=== PATIENT | male | born 1945 | race Caucasian/White ===

== ENCOUNTER 2020-06-27 06:27 | Inpatient (IN) | payer MEDICARE ==
[~2020-06-27] VITALS: Ht 152.4 cm; Wt 105.7 kg
[2020-06-27 06:29] VITALS: BP 137/89
[2020-06-27 07:16] LABS: BE(vivo) 0.8 mmol/L (-2 to +3); HCO3 25.1 mmol/L (22.0-26.0); PCO2 39.1 mmHg (35.0-45.0); PO2 78.6 mmHg (80.0-100.0); pH 7.425 (7.360-7.450); sO2 95.9 % (92.0-98.0)
[2020-06-27 07:18] LABS: HEMATOCRIT 40.9 % (42.0-52.0); HEMOGLOBIN 13.3 gm/dL (14.0-18.0); MCHC 32.7 g/dL (28.0-37.0); MCV 88.9 fL (80.0-100.0); PLATELET COUNT 384 thou/uL (150-400); RDW 14.2 % (10.5-14.5); WBC 22.3 thou/uL (4.0-11.0)
[2020-06-27 07:41] LABS: ALBUMIN 2.9 g/dL (3.4-5.0); CALCIUM 8.3 mg/dL (8.5-10.1); CREATININE 1.8 mg/dL (0.7-1.3); TOTAL BILIRUBIN 0.8 mg/dL (0.2-1.0); TOTAL PROTEIN 7.3 g/dL (6.4-8.2)
[2020-06-27 07:53] LABS: ABSOLUTE NEUTROPHILS 20.3 thou/uL (1.4-8.2)
[2020-06-27 07:54] LABS: PLATELET ESTIMATE NORMAL; POTASSIUM 4.1 mmol/L (3.5-5.1)
[2020-06-27 12:54] LABS: URINE BILIRUBIN NEGATIVE (Negative); URINE BLOOD 3+ (Negative); URINE COLOR YELLOW; URINE GLUCOSE-RANDOM* NEGATIVE (Negative); URINE KETONES NEGATIVE (Negative); URINE NITRITE-REFLEX NEGATIVE (Negative); URINE PROTEIN (DIPSTICK) 2+ (Negative); URINE SPECIFIC GRAVITY 1.015 (1.005-1.035)
[2020-06-27 12:55] LABS: URINE CLARITY CLOUDY; URINE LEUKOCYTES-REFLEX 3+ (Negative)
[2020-06-27 12:58] LABS: CRYSTALS None Seen /LPF (None Seen); SQUAMOUS None Seen /LPF (0-3); URINE RBC >20 Many /HPF (0-2); URINE WBC-REFLEX >25 Many /HPF (0-5)
--- NOTE | 2020-06-27 14:19 | EKG ---
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
--- NOTE | 2020-06-27 22:31 | NUR ---
SPOKE WITH ADRIA MCCRAY, REPORTED PT FINDINGS. MAY DC ISOLATION FOR COVID.
[2020-06-27 22:45] VITALS: BP 117/43
[2020-06-27 23:11] VITALS: BP 117/47
[2020-06-28 04:04] VITALS: BP 133/67
[2020-06-28 05:50] LABS: HEMATOCRIT 33.9 % (42.0-52.0); MCH 29.2 pg (26.0-34.0); MCHC 32.8 g/dL (28.0-37.0); MCV 89.1 fL (80.0-100.0); RBC 3.81 mil/uL (4.50-6.00); RDW 14.5 % (10.5-14.5); WBC 25.6 thou/uL (4.0-11.0)
[2020-06-28 05:59] LABS: CALCIUM 8.7 mg/dL (8.5-10.1); CREATININE 1.7 mg/dL (0.7-1.3); POTASSIUM 4.7 mmol/L (3.5-5.1)
[2020-06-28 06:00] LABS: HEMOGLOBIN 11.1 gm/dL (14.0-18.0)
[2020-06-28 07:27] VITALS: BP 126/66
--- NOTE | 2020-06-28 07:53 | NUR ---
admit pt admitted to room 456 via ed with copd exacerbation and chf. pt irritable at times vss, ivf's infusing as ordered pt voiding per urinal lower legs pink pt stated they are always like that since he had cellulitis a few years ago. oriented to room call light and poc.
--- NOTE | 2020-06-28 10:57 | NUR ---
Nutrition: pt admitted with COPD exacerbation, SOB. Consult received. PMH: CVA, COPD. pt reports good appetite on regular diet. BG 151-211, likely elevated with steroid need. Stable weights reported. BMI 33, obesity class 1. Pt voices no needs from RD. Understands how to order meals. Could consider heart healthy, carb controlled diet order. Low risk.
--- NOTE | 2020-06-28 11:59 | NUR ---
PT ADMITTED RELATED TO COPD EXACERBATION, PUI. CM REVIEWED CHART AND SPOKE WITH CARE TEAM. CM CALLED AND SPOKE WITH PT OVER THE PHONE THIS DAY. PT APPEARED TO BE A&O X4. CM ROLE INTRODUCED. PT INDICATED HE HAD BEEN LIVING IN A HOUSE WITH HIS DTR CONNOR PRIOR TO ADMISSION. HE INDICATED THAT THERE IS A STAIR GLIDETO ENTER THE HOUSE AND NO STEPS PT NEEDS TO NAVIGATE INSIDE. PT INDICATED HE HAS AN ELECTRIC WC, NEBULIZER, FWW, GB, AND SHOWER CHAIR FOR HOME USE. 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 PT INIDCATED HIS PCP IS DR. MIKEY BATISTA AT [facility]. HE INDICATED THAT HE HAD HOME HEALTH IN THE LAST YEAR AND DTR INIDCATED THAT HE HAD USED [facility], AND [facility]. SHE INDICATED THEY WOULD PREFER TO NOT USE [facility] AGAIN BUT WOULD BE OK WITH [facility]. CM TO SEND REFERRAL. PT ADN OT SAW PT AND INDICATED HE WOULD LIKELY PROGRESS TO BE ABLE TO RETURN HOME WITH HH SERVICES ONCE MEDICALLY STABLE. CM NOTIFIED DTR AND PT OF THIS. CM TO FOLLOW INDICATED WITH DC PLANNING.
[2020-06-28 14:59] VITALS: BP 126/66
--- NOTE | 2020-06-28 15:02 | NUR ---
[facility] is accepting of home health care at discharge. IF patient should discharge over weekend please call home health at [facility] [phone] FAX [phone] fax orders to above fax.
--- NOTE | 2020-06-28 15:39 | NUR ---
PATIENT A&OX4, VSS, DENIES PAIN. PATIENT SINUS RHYTHM TELE MONITOR. PATIENT HAS REDNESS ON BILAT LE FROM HX CELLULITIS. PATIENT EATING 100 PERCENT OF MEALS. PATIENT USES THE URINAL. LUNGS SOUND CLEAR BREATHING EVEN AND NON LABORED. PATIENT IS ON ROOM AIR, SATURATION AT 95 PERCENT AVERAGE. NO SIGNS OF DISTRESS. NO COUGH NOTED, AFEBRILE. WILL CONTINUE TO MONITOR.
--- NOTE | 2020-06-28 15:57 | 2DMMODE ---
[facility] [address] [employer] [place] [address] 2 D/M-MODE ECHOCARDIOGRAM Name: BERNARD DENT Room #: 456-P ADM IN M.R.#: [id number] Admission: 06/27/20 Attend Phys: Kam Schafer MD Discharge: Date of : 45 Report #: [id number] THIS REPORT FOR: cc: MYESHA Thacker family physician/PCP MYESHA - Kirstie family physician/PCP Jean-Paul Berry MD [facility] ~ APPROVED REPORT Study performed: 06/28/2020 15:09:54 EXAM: Comprehensive 2D, Doppler, and color-flow Echocardiogram Patient Location: Bedside Room #: [facility] Status: routine BSA: 2.25 HR: 102 bpm BP: 126/66 mmHg Other Information Technically limited study due to lung disease, inability to position patient. Indications COPD Dyspnea 2D Dimensions LVOT Diam: 24.75 (18-24mm) Aortic Valve AoV Peak German.: 2.33 m/s AO Peak Gr.: 21.73 mmHg LVOT Max P.94 mmHg AO Mean Gr.: 11.27 mmHg LVOT Mean P.01 mmHg AO V2 Mean: 1.55 m/s LVOT Max V: 1.22 m/s AO V2 VTI: 48.65 cm LVOT Mean V: 0.79 m/s PARIS (VTI): 2.95 cm2 LVOT V1 VTI: 29.83 cm PARIS Vmax: 2.51 cm2 SV (LVOT): 143.47 mL Pulmonary Valve PV Peak German.: 0.86 m/s PV Peak Gr.: 2.99 mmHg Left Ventricle The left ventricle is normal size. There is normal LV segmental wall [facility] [address] [place] [address] 2 D/M-MODE ECHOCARDIOGRAM Name: BERNARD DENT Room #: 456-P ADM IN M.R.#: [id number] Admission: 06/27/20 Attend Phys: Kam Shcafer MD Discharge: Date of : 45 Report #: [id number] motion. There is normal left ventricular wall thickness. The left ventricular systolic function is normal. The left ventricular ejection fraction is within the normal range. LVEF is 55-60%. This study is not technically sufficient to allow evaluation of the LV diastolic function. Right Ventricle The right ventricle is normal size. The right ventricular systolic function is normal. Atria The left atrium size is normal. The right atrium size is normal. Aortic Valve The aortic valve is normal in structure. Aortic valve is calcified. No aortic regurgitation is present. Mitral Valve The mitral valve is normal in structure. Trace mitral regurgitation. No evidence of mitral valve stenosis. Tricuspid Valve The tricuspid valve is normal in structure. There is no tricuspid valve regurgitation noted. Pulmonic Valve The pulmonary valve is normal in structure. There is no pulmonic valvular regurgitation. Great Vessels The aortic root is normal in size. IVC is not well visualized. Pericardium There is no pericardial effusion. <Conclusion> Normal left ventricle size, wall thickness and systolic function Ejection fraction of 60%, negative for segmental wall motion normality Normal right ventricular size and function Mild aortic valve calcification Trace of mitral valve insufficiency No significant valvular dysfunction detected [facility] [address] [place] [address] 2 D/M-MODE ECHOCARDIOGRAM Name: BERNARD DENT Room #: 456-P ADM IN .R.#: [id number] Admission: 06/27/20 Attend Phys: Kam Schafer MD Discharge: Date of : 45 Report #: [id number] No tricuspid valve insufficiency detected No pericardial effusion <ELECTRONICALLY SIGNED> By: Jean-Paul Berry MD, FACC 06/28/20 1557 56 56 Jean-Paul Berry MD, FACC /INF
[2020-06-28] MEDS ORDERED: NORVASC5 MG PO (15:58)
[2020-06-28] MEDS ORDERED: ASA81BEC PO (15:58)
[2020-06-28] MEDS ORDERED: FUROSEMIDE 40 M40 M1 PO (15:59)
[2020-06-28] MEDS ORDERED: DULOXETINE HCL60 MG PO (15:59)
[2020-06-28] MEDS ORDERED: LIPITOR 40 MG T40 M1 PO (16:00)
[2020-06-28] MEDS ORDERED: FAMOTIDINE40 MG PO (16:00)
[2020-06-28] MEDS ORDERED: NEURONTIN300 MG PO (16:03)
[2020-06-28 20:16] VITALS: BP 138/74
--- NOTE | 2020-06-29 04:51 | NUR ---
Pt. rested quietly at intervals during the night when checked on during frequent rounds. He did refuse his insulin and lovenox last evening. He has been voiding per urinal. On room air and o2 saturations have been in the mid 90's. No c/o shortness of air. Bed alarm is on.
[2020-06-29 08:30] VITALS: BP 142/67
--- NOTE | 2020-06-29 08:30 | NUR ---
PT SITTING UP IN BED, PT HAS EXP WHEEZES THROUGH OUT LUNG HUGHES. PT HAS COUGH THAT IS DRY. PT STATED HE REQUESTED PULL-UPS THIS AM. PT DOES UES URINAL TO VOID. PT DENIES ANY PAIN AT THIS TIME. PT ON TELE WITH HEART RATE 67 BRADYCARDIA WHEN RESTING. SAT THIS AM ON ROOM AIR 92%.
[2020-06-29] MEDS ORDERED: DOXYCYCLINE 10100 M2 PO (09:31)
[2020-06-29] MEDS ORDERED: PREDNISONE 10 M10 M1 PO (09:31)
--- NOTE | 2020-06-29 11:20 | NUR ---
PT GETTING RT TX NOW. WASHED PT FEET, VERY DRY AND REDDNESS WITH SCABS NOTED TO LOWER EXT. ENCOURAGED PT TO DRINK WATER. PT STATED HE DOESN'T LIKE THE TASTE OF WATER. HE SAYS HE DRINKS COFFE IN AM AND THEN AROUND 5 PM HE DRINKS PEPSI. PT STATED HE DOESN'T LIKE TO DRINK BECAUSE HE HAS TO VOID. APPLIED LOTION TO LOWER LEGS AND FEET. WILL GET UP IN CHAIR FOR LUNCH. DR. AUSTIN STATED HE CAN SEE HOW HE DOES TODAY AND D/C TOMMORROW. PT STILL HAS EXP WHEEZE.
--- NOTE | 2020-06-29 12:15 | NUR ---
ASSISTED PT WITH REST OF BED BATH. PT UP TO CHAIR X2 STAFF, HE HAS TROUBLE MOVING LEFT LEG OVER. PT SAYS USUALLY HE GETS OUT OF RT SIDE OF BED NOT LEFT.
[2020-06-29 16:36] VITALS: BP 132/49
--- NOTE | 2020-06-29 16:54 | NUR ---
PT STILL UP IN CHAIR WITH FEET RECLINED. PT DRINKING WATER TODAY, GAVE PT DIET SIRRA MIST TODAY AND CRACKERS WITH PEANUT BUTTER. PT STATED HE ONLY EATS ONE MEAL A DAY SINCE HE WAS 11. PT STATED HE DOESN'T LIKE FOOD HE HAS TO TOUCH SINCE WHEN HE WAS YOUNG HIS GRANDPARENTS CUT UP HIS FOOD FOR HIM. HE DIDN'T WANT HIS CHICKEN SANDWICH AT LUNCH, HE DID EAT HIS POUND CAKE DESSERT.
--- NOTE | 2020-06-29 17:03 | NUR ---
PT BLOOD SUGAR CHECKED AND IS 173, HE TOLD THE NURSE AIRCRAFT RESTORER HE IS NOT GETTING POKED WITH A NEEDLE.
[2020-06-29 19:41] VITALS: BP 132/67
--- NOTE | 2020-06-30 04:41 | NUR ---
Pt. rested quietly during the night when checked on during frequent rounds. He offers no c/o shortness of air. Continues to be on room air. No c/o pain offered. Bed alarm is on.
[2020-06-30 08:00] VITALS: BP 141/47
[2020-06-30] MEDS ORDERED: ACCUNEB SO1.25 MG/1 INH (10:15)
--- NOTE | 2020-06-30 16:11 | NUR ---
Assumed pt care this am, VS stable refused blood sugar checks. Refused lunchg stating he only eats once a day. Uses the urinal, could be undecisive at times. Medications are tolerqated well. DC instructioins and prescriptions givne to the pt, daughter updated and informed. IV removed, pt is to be [icked up by daughter going home with home health.
== END 2020-06-30 16:30 | disposition home health service (06) | DRG 871 ==
LOC: ER 06:27 → 4W 14:19 → EROBS 14:19 → 4W 22:59
PROVIDERS: Emergency Medicine; Internal Medicine Pulmonary Disease; ADMIT Hospitalist; ATTEND Hospitalist
DX: A41.9 Sepsis, unspecified organism (principal); J96.01 Acute respiratory failure with hypoxia; J18.9 Pneumonia, unspecified organism; N17.9 Acute kidney failure, unspecified; J44.1 Chronic obstructive pulmonary disease with (acute) exacerbation; I69.354 Hemiplegia and hemiparesis following cerebral infarction affecting left non-dominant side; R00.0 Tachycardia, unspecified; N40.0 Benign prostatic hyperplasia without lower urinary tract symptoms; D72.829 Elevated white blood cell count, unspecified; Z20.828 Contact with and (suspected) exposure to other viral communicable diseases; Z87.891 Personal history of nicotine dependence; Z99.3 Dependence on wheelchair
CPT/HCPCS: 10045

== ENCOUNTER 2021-05-11 17:43 | Inpatient (IN) | payer MEDICARE ==
[~2021-05-11] VITALS: Ht 182.9 cm; Wt 96.6 kg
--- NOTE | ~2021-05-11 | EMS ---
[address] [address] EMS Patient Care Report Name: BERNARD DENT Room #: REG THU Quijano#: [id number] Admission: 05/11/21 Attend Phys: Discharge: Date of : 45 Report #: [id number] THIS REPORT FOR: //name// Report Transmitted: 05/11/2021 18:37 EMS Care Summary [place], [place]/[facility] Incident [id number] @ 05/11/2021 17:12 Incident Location [address] [place] [id number] Patient BERNARD DENT Male, 75 Years 1945 Patient Address [address] [id number] Patient History Chronic Obstructive Pulmonary Disease (COPD),Stroke/CVA, Patient Allergies No known allergies, Patient Medications Lasix, Gabapentin, Chief Complaint KNEE PAIN Disposition Transported No Lights/[place] Dispatch Reason Falls Transported To [facility] Narrative UPON ARRIVAL PT SITTING UPRIGHT IN RECLINER CONSCIOUS AND ALERT. PT HAD FALLEN WHILE TRYING TO GET UP WHEN HIS LEG GOT CAUGHT AND KIND OF TWISTED. PT HAS PAIN TO L KNEE. PT DENIES ANY OTHER INJURY. PT PIVOTS TO COT AND TRANSPORTED TO [address] [address] EMS Patient Care Report Name: BERNARD DENT Room #: CARMELO Quijano#: [id number] Admission: 05/11/21 Attend Phys: Discharge: Date of : 45 Report #: [id number] Initial Vitals @17:26P: 60,R: 20,BP: 97/60,Pain: 10/10,GCS: 15,SpO2: 96,Revised Trauma: 12, @17:39P: 91,R: 20,BP: 92/70,GCS: 15,SpO2: 95,Revised Trauma: 12, Assessments @17:20MENTAL:Event Oriented,Person Oriented,Place Oriented,Time Oriented,SKIN:HEENT:Head/Face: No Abnormalities,Neck/Airway: No Abnormalities,LUNG SOUNDS:General: No Abnormalities,ABDOMEN:General: No Abnormalities,PELVIS//GI:No Abnormalities,EXTREMITIES:Left Leg: Paralysis,Left Arm: Paralysis,Right Arm: No Abnormalities,Right Leg: No Abnormalities,PULSE:Radial: 2+ Normal,NEURO:No Abnormalities, Impression Extremity Pain Procedures @17:20ALS AssessmentResponse: UnchangedSucceeded Timeline 17:11,Call Received 17:11,Dispatch Notified 17:12,Dispatched 17:12,En Route 17:18,On Scene 17:19,At Patient 17:20,ALS Assessment,Response: UnchangedSucceeded, 17:25,Depart Scene 17:26,BP: 97/60 M,PULSE: 60,RR: 20 R,SPO2: 96 Ox,ETCO2: ,BG: ,PAIN: 10,GCS: 15, 17:39,BP: 92/70 M,PULSE: 91,RR: 20 R,SPO2: 95 Ox,ETCO2: ,BG: ,PAIN: ,GCS: 15, 17:41,At Destination 17:54,Call Closed Disclaimer v1.1 Copyright 2020 [employer] This EMS Care Summary contains data elements from the applicable legal record (which may be displayed differently). It is designed to provide pertinent information for the following purposes: continuity of care, clinical quality, and state data reporting. The complete legal record is available to ED staff and administrators of the receiving hospital in [employer]'s Patient Tracker. All data is provided "as is."
[~2021-05-11 17:43] MED LIST: ACCUNEB SO1.25 MG/1 INH; ASA81BEC PO; DOXYCYCLINE 10100 M2 PO; DULOXETINE HCL60 MG PO; FAMOTIDINE40 MG PO; FUROSEMIDE 40 M40 M1 PO; LIPITOR 40 MG T40 M1 PO; NEURONTIN300 MG PO; NORVASC5 MG PO; PREDNISONE 10 M10 M1 PO
[2021-05-11 17:45] VITALS: BP 103/69
[2021-05-11] MEDS ORDERED: METOPROLOL TART25 MG PO (22:50)
[2021-05-11] MEDS ORDERED: FUROSEMIDE 40 M40 MG PO (23:44)
[2021-05-12 01:45] VITALS: BP 128/74
[2021-05-12 02:00] VITALS: BP 122/68
--- NOTE | 2021-05-12 02:59 | NUR ---
PT ARRIVED ON FLOOR FROM ER AT 0130. FROM HOME WITH DAUGHTER--FELL SUFFERING A LEFT TIB/FIB FRACTURE. CONDOM CATH APPLIED. LORTAB PROVIDING PAIN RELIEF. ORTHO CONSULTED. RESTING COMFORTABLY. NO NEEDS VOICED. CALL LIGHT WITHIN REACH. FREQUENT OBSERVATION.
[2021-05-12 07:12] VITALS: BP 123/74
[2021-05-12 11:14] LABS: HEMATOCRIT 37.3 % (42.0-52.0); HEMOGLOBIN 11.9 gm/dL (14.0-18.0); MCH 27.7 pg (26.0-34.0); MCV 86.5 fL (80.0-100.0); RBC 4.31 mil/uL (4.50-6.00); RDW 16.1 % (10.5-14.5); WBC 14.8 thou/uL (4.0-11.0)
[2021-05-12 11:23] LABS: CALCIUM 8.2 mg/dL (8.5-10.1); CREATININE 2.1 mg/dL (0.7-1.3); POTASSIUM 3.9 mmol/L (3.5-5.1)
--- NOTE | 2021-05-12 12:19 | NUR ---
ASSESSMENT: CM REVIEWED CHART AND MET WITH PATIENT AT THE BEDSIDE. PT IS ALERT AND ORIENTED X4. PT IS S/P TIB TIB FX AND AWAITING ORTHO CONSULT TO SEE RECOMMENDATIONS IF PATIENT WILL NEED SURGERY OR NOT. PT REPORTS THAT HE CURRENTLY LIVES WITH HIS DAUGHTER CONNOR IN A HOUSE. PT REPORTS HAVING NO STEPS TO ENTER AND HAS A STAIR GLIDE TO AVOID STEPS IN THE INSIDE. PT REPORTS HAVING AN ELECTRIC WHEELCHAIR, FWW, NEBULIZER, GRAB BAR AND SHOWER CHAIR AT HOME. PTS PCP IS DR. MIKEY BATISTA. PT [facility], [facility] IN THE PAST. PT REPORTS IF HE NEEDS HH AT DISCHARGE HE PREFERS TO USE [facility]. AWAITING ORTHO RECS AT THIS TIME. PT/OT CURRENTLY ON HOLD. CM WILL CONTINUE TO FOLLOW TO ASSIST NEEDED.
--- NOTE | 2021-05-12 15:05 | NUR ---
Assumed pt care at 7am.Pt in bed resting without c/o. Assessment completed.vss Pt tolerated meds and diet.Lt knee brace intact.ST per registered nurse cardiac most of the times.No c/o pain. Dr Medina here,order noted.Fall bundle in place. Will continue to monitor.
[2021-05-12 15:46] VITALS: BP 121/76
[2021-05-12 19:41] VITALS: BP 119/60
[2021-05-13 02:05] VITALS: BP 131/71
--- NOTE | 2021-05-13 03:10 | NUR ---
ASSUMED PT CARE AT 1900.PT'S O2 SAT AT START OF SHIFT WAS 87%.PT ON 2L/NC,SAT UP TO 95%.L KNEE BRACE IN PLACE.REDNESS TO BLE AND BUTTOCK.INCENTIVE SPIROMETER PROVIDED,EDUCATION GIVEN.CONDOM CATH IN PLACE.PAIN MED GIVEN PER PT'S REQUEST.PT SLEEPING ON HIS BED AT THIS TIME.CALL LIGHT WITHIN REACH.
[2021-05-13 04:25] VITALS: BP 129/67
[2021-05-13 09:19] VITALS: BP 140/76
--- NOTE | 2021-05-13 14:29 | NUR ---
ON-GOING ASSESSMENT: CM REVIEWED CHART AND SPOKE WITH PATIENT AND HIS DAUGHTER CONNOR. CM DISCUSSED DUE TO PATIENTS NWB STATUS ATTENDING IS RECOMMENDING SNF. CM DISCUSSED WITH PATIENT AND HIS DAUGHTER AND THEY REPORT PATIENT WAS JUST RECENTLY AT [facility] AND PREFER TO GO BACK THERE. CM FAXED REFERRAL TO [facility] AND LEFT A VM WITH ADMISSIONS. PT WAS UNABLE TO WORK WITH THERAPIES TODAY DUE TO BEING TACHY. CM WILL CONTINUE TO FOLLOW TO ASSIST NEEDED. PT WILL NEED TO WORK WITH PT/OT SO IF FACILITY CAN ACCEPT THEY WILL HAVE TO SEEK AUTH.
[2021-05-13 16:21] VITALS: BP 117/77
--- NOTE | 2021-05-13 18:30 | NUR ---
PT UNABLE TO HAVE THERAPY TODAY HEART RATE TOO FAST. MISSED LAST EVENING DOSE OF METOPROLOL AND HE TOOK A LONG TIME TO STABILIZE. DR. AZUL NOTIFIED AND MED INCREASED. DOING BETTER THIS AFTERNOON. LEG BRACE CUT TO SIZE PER THERAPIST. POOR APPETITE. PAIN MED HELPING PAIN.
[2021-05-13 19:38] VITALS: BP 109/68
--- NOTE | 2021-05-14 00:31 | NUR ---
PT'S HR IN THE UPPER 70'S AND LOWER 80'S AT HS.PT WHEEZING WITH NON PRODUCTIVE COUGH.RT NOTIFIED TO GIVE PT RT TX.PT REF THE RT TX,WAS ENCOURAGED TO USE THE INCENTIVE SPIROMETER.PT ALSO REF TO USE THE IS.PT STATED THAT HE USED IT AT HOME AND IT DID NOTHING FOR HIM.PT CONT ON 2L/NC.REDNESS TO BLE.PAIN MED GIVEN PER PT'S REQUEST AFTER REPOSITING HIM.CALL LIGHT WITHIN REACH.
[2021-05-14 03:45] VITALS: BP 127/74
[2021-05-14 06:45] LABS: HEMATOCRIT 36.2 % (42.0-52.0); HEMOGLOBIN 11.8 gm/dL (14.0-18.0); MCH 28.4 pg (26.0-34.0); MCHC 32.6 g/dL (28.0-37.0); MCV 87.3 fL (80.0-100.0); RBC 4.15 mil/uL (4.50-6.00); RDW 16.1 % (10.5-14.5); WBC 13.2 thou/uL (4.0-11.0)
[2021-05-14 06:55] LABS: CALCIUM 8.6 mg/dL (8.5-10.1); CREATININE 1.8 mg/dL (0.7-1.3); POTASSIUM 3.7 mmol/L (3.5-5.1)
[2021-05-14 07:13] VITALS: BP 125/76
--- NOTE | 2021-05-14 10:18 | NUR ---
Assumed care of pt at 0700. Pt alert but forgetgul at times. Immobilizer in place on LLE. NWB LLE. PT/OT. Pt tachy at 130-140 this am. Provider notified. New orders noted. Heart rate now NSR. Condom cath in place. Call light within reach. Fall precautions in place. Will continue to monitor.
[2021-05-14 12:19] VITALS: BP 111/67
--- NOTE | 2021-05-14 15:27 | NUR ---
ON-GOING ASSSESSMENT: JOSSIE REVIEWED CHART AND SPOKE WITH NITISH KING FROM [place]. SHE REPORTS THAT [facility] CAN [facility]IN[facility] ACCEPT PATIENT BUT THEY WILL NEED INSURANCE AUTH PRIOR TO TRANSFERRING DUE TO HIS SPECIFIC PLAN AND THEY WILL START WORKING ON THAT. CM FAXED UPDATED CLINICAL TO [facility]. CM ALSO SPOKE WITH PATIENT AND HIS DAUGHTER CONNOR TO UPDATE. CM WILL CONTINUE TO FOLLOW TO ASSIST NEEDED.
[2021-05-14 15:42] VITALS: BP 112/66
[2021-05-14 19:05] VITALS: BP 126/61
--- NOTE | 2021-05-15 03:00 | NUR ---
PT C/O PAIN TO HIS LLE,MANAGED WITH MED.NWB ON HIS LLE.CONDOM CATH IN PLACE.PT'S HEELS BOGGY,JUAREZ PRAFO BOOTS IN PLACE.PT WITH L SIDED WEAKNESS,REPOSITIONED IN BED PER HIS REQUEST.PT ABLE TO MAKE HIS NEEDED KNOWN.CALL LIGHT WITHIN REACH.
[2021-05-15 04:16] VITALS: BP 117/69
[2021-05-15 07:19] VITALS: BP 121/72
--- NOTE | 2021-05-15 08:17 | EKG ---
[place] [address] [facility] [place] [address] ELECTROCARDIOGRAM REPORT Name: BERNARD DENT Room #: 438-P ADM IN M.R.#: [id number] Admission: 05/11/21 Attend Phys: Francis Medina MD Discharge: Date of : 45 Report #: [id number] [facility] Test Date: 2021-05-14 Test Time: 08:53:15 Pat Name: BERNARD DENT Department: Room: 438 P Gender: M Qa Internship: MATT : 1945 Requested By: Francis Medina Order Number: [id number] MD: Jeanmarie Mcdonough Measurements Intervals [place] Rate: 87 P: 39 IN: 162 QRS: -6 QRSD: 148 T: -11 QT: 388 QTc: 467 Interpretive Statements Sinus rhythm Atrial premature complexes Right bundle branch block Inferior infarct, old Compared to ECG 06/27/2020 06:44:42 Atrial fibrillation no longer present Ventricular premature complex(es) no longer present Electronically Signed On 05-15-2021 8:17:06 CDT by Jeanmarie Mcdonough [email or web address] <ELECTRONICALLY SIGNED> By: Jeanmarie Mcdonough MD, [facility] 05/15/2117 0853 [id number] Jeanmarie Mcdonough MD, [facility] /EPI
--- NOTE | 2021-05-15 10:19 | NUR ---
ASSUMED PT CARE THIS AM. PT HAS IV SITE ON L HAND SALINE LOCKED. PT IS ON TELE MONITOR ON. PT HAS CONDOM CATH IN PLACE AND PREFO BOOTS BILATERALLY DUE TO BOGGY HEELS. PT HAS LLE BRACE. PT IS ON 2L NC O2. PT WAS WORKING WITH OCCUPATIONAL THERAPY THIS AM. PT C/O OF PAIN AND GIVEN PAIN MEDICATION PER PT REQUEST. WILL CONTINUE TO MONITOR PT. FOLLOW POC.
[2021-05-15 11:51] VITALS: BP 128/76
[2021-05-15] MEDS ORDERED: METOPROLOL TART25 MG PO (13:16)
[2021-05-15] MEDS ORDERED: HYDROCODON-ACE1 EAC7 PO (13:17)
--- NOTE | 2021-05-15 14:46 | NUR ---
INSURANCE AUTH RECEIVED FOR PT TO DC SKILLED TO [facility] THIS DAY. CHART COPY MADE. ORDERS FAXED. FACILITY SET UP SECURE ST[facility]CHER TRANSPORT FOR TOWER DRAGLINE OPERATOR AT 1445. CM NOTIFIED PT AND DTR CONNOR. NURSE CALLED REPORT. NO OTHER CM INTERVENTION INDICATED. CASE CLOSED.
== END 2021-05-15 14:58 | DRG 562 ==
LOC: ER 17:43 → 4S 20:00 → EROBS 20:00 → 4S 05-12 01:34
PROVIDERS: Nurse Practitioner Family; ADMIT Hospitalist; ATTEND Hospitalist
DX: S82.145A Nondisplaced bicondylar fracture of left tibia, initial encounter for closed fracture (principal); R65.11 Systemic inflammatory response syndrome (SIRS) of non-infectious origin with acute organ dysfunction; N17.9 Acute kidney failure, unspecified; I69.354 Hemiplegia and hemiparesis following cerebral infarction affecting left non-dominant side; N18.9 Chronic kidney disease, unspecified; R00.0 Tachycardia, unspecified; J44.9 Chronic obstructive pulmonary disease, unspecified; K21.9 Gastro-esophageal reflux disease without esophagitis; E78.5 Hyperlipidemia, unspecified; Z20.822 Contact with and (suspected) exposure to COVID-19; R53.81 Other malaise; I12.9 Hypertensive chronic kidney disease with stage 1 through stage 4 chronic kidney disease, or unspecified chronic kidney disease; K59.00 Constipation, unspecified; W18.39XA Other fall on same level, initial encounter; Y93.89 Activity, other specified; Y92.89 Other specified places as the place of occurrence of the external cause; Z87.891 Personal history of nicotine dependence; Z79.82 Long term (current) use of aspirin; Z79.899 Other long term (current) drug therapy; Y99.8 Other external cause status
CPT/HCPCS: 10100